=== PATIENT | male | born 1985 | race Caucasian/White ===

== ENCOUNTER 2016-10-15 21:25 | Emergency (ER) | payer SELFPAY ==
[2016-10-16] MEDS ORDERED: CLINDAMYCIN HCL 150 MG CAPSULE PO ONE (01:16)
--- NOTE | 2016-10-16 01:19 | ER Document Report ---
ED General - General Chief Complaint: Toothache Stated Complaint: HEAD PAIN Time Seen by Provider: 10/16/16 01:04 Notes: Patient is a 31-year-old male who presents with complaint of left upper molar pain. He says that he broke this tooth 2 years ago. Last few days he started noticing swelling type sensation on the tooth and has been very painful. He has not yet seen a dentist. He says he feels as though the swelling is going up the left side of his face. No swelling below his jaw or into his neck. No fevers. No difficulty swallowing. No other complaints at this time. TRAVEL OUTSIDE OF THE [place] IN LAST 30 DAYS: No - Related Data Allergies/Adverse Reactions: No Known Allergies Allergy (Unverified 10/15/16 22:25) Past Medical History - Social History Smoking Status: Unknown if Ever Smoked Frequency of alcohol use: None Drug Abuse: None Family History: Reviewed & Not Pertinent Patient has suicidal ideation: No Patient has homicidal ideation: No Renal/ Medical History: Denies: Hx Peritoneal Dialysis Review of Systems - Review of Systems Notes: My Normal Review Basic REVIEW OF SYSTEMS: CONSTITUTIONAL : Denies fever, chills, or sweats. Denies recent illness. EENT: Left upper molar pain. RESPIRATORY: Denies cough, cold, or chest congestion. Denies shortness of breath, difficulty breathing, or wheezing. GASTROINTESTINAL: Denies abdominal pain. Denies nausea, vomiting, or diarrhea. Denies constipation. Last BM: NEUROLOGICAL: Denies altered mental status or loss of consciousness. ALL OTHER SYSTEMS REVIEWED AND NEGATIVE. Physical Exam - Vital signs Vitals: Temp Pulse Resp BP Pulse Ox 98.1 F 74 18 117/79 95 10/15/16 22:19 10/15/16 22:19 10/15/16 22:19 10/15/16 22:19 10/15/16 22:19 - Notes Notes: General Appearance: Well nourished, alert, cooperative, no acute distress, mild to moderate obvious discomfort. Vitals: reviewed, See vital signs table. Head: no swelling or tenderness to the head. I do not appreciate any swelling of the face on my physical exam. Eyes: PERRL, EOMI, Conjuctiva clear Mouth: broken left upper molar Throat: No tonsillar inflammation, No airway obstruction, No lymphadenopathy Neck: Supple, no neck tenderness, no swelling of the neck Neuro: speech clear, oriented x 3, normal affect, responds appropriately to questions. Course - Vital Signs Vital signs: Temp Pulse Resp BP Pulse Ox 98.1 F 74 18 117/79 95 10/15/16 22:19 10/15/16 22:19 10/15/16 22:19 10/15/16 22:19 10/15/16 22:19 - Transfer of Care Notes: 10/16/16 01:23 Patient has what appears to be a broken tooth. He says he feels as if there is swelling going into his face. I do not appreciate any swelling on exam however he does feel pain going into his face. Will place him on antibiotic. Wanting narcotic pain medicines at this time. He said will call dentist first thing in the morning. He is encouraged to return to ER he if has any facial swelling, swelling of the neck, difficulty breathing or swallowing, fevers, or feels unwell. Patient agrees with plan will be discharged home. Dictation of this chart was performed using voice recognition software; therefore, there may be some unintended grammatical errors. Discharge - Discharge Clinical Impression: Toothache Condition: Good Disposition: HOME, SELF-CARE Additional Instructions: Toothache Your pain is due to dental decay. The tooth must be repaired in order for you to feel better. You will, therefore, be referred to a dentist. Severe swelling or drainage around a tooth usually means a deep dental abscess. This also requires evaluation and treatment by the dentist, but antibiotics will be prescribed while awaiting dental treatment. You should be rechecked immediately if you develop major swelling of the face, increasing pain, a lump in the jaw or gums, headache, or fever. Please return to the ER if you have swelling below your jaw, difficulty breathing, fevers, or feel unwell. Please call a dentist in the morning for close follow up. Prescriptions: Clindamycin HCl 300 mg PO ASDIR #56 capsule Forms: Return to Work
[2016-10-16 02:39] VITALS: BP 119/82
== END 2016-10-16 01:40 | disposition home or self-care (01) ==
LOC: EDBD → ER 21:25
DX: K08.89 Other specified disorders of teeth and supporting structures (principal); R51 Headache
CPT/HCPCS: 99282